=== PATIENT | male | born 1985 | race Caucasian/White ===

== ENCOUNTER 2017-01-25 22:02 | Emergency (ER) | payer SELFPAY ==
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
[2017-01-25 22:50] VITALS: BP 157/94
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
--- NOTE | 2017-01-26 10:59 | CR ---
EXAM DATE: 01/25/17 PATIENT'S AGE: 31 Patient: MAULIK BRANNON Facility: [place], [place] Site . Site : 1985 Study: XRay Shoulder Right [id number]/28/2017 10:47:59 PM Ordering Physician: Darnell Rios Final Report: CLINICAL INDICATION: Pain. Findings: There is a minimally displaced fracture at the junction of the middle and distal thirds of the clavicle. No other bone or joint abnormality is identified. The scapula and proximal humerus appear intact. Impression: Clavicular fracture. Dictated by Milad Quinn MD @ Jan 25 2017 11:11PM (Electronic Signature) Report Signed by Proxy. TASIA
== END 2017-01-25 23:14 | disposition left against medical advice (07) ==
LOC: MW.ED 22:02
DX: S42.032A Displaced fracture of lateral end of left clavicle, initial encounter for closed fracture (principal); V86.59XA Driver of other special all-terrain or other off-road motor vehicle injured in nontraffic accident, initial encounter
CPT/HCPCS: 71010; 72170; 73030; 99284; A4566; 99283

== ENCOUNTER 2017-01-26 20:16 | Emergency (ER) | payer SELFPAY ==
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
[2017-01-26 23:06] VITALS: BP 125/72
--- NOTE | 2017-01-27 13:52 | CR ---
EXAM DATE: 01/26/17 PATIENT'S AGE: 31 Patient: MAULIK BRANNON Facility: [place], [place] Site . Site : 1985 Study: XRay Shoulder [id number]/29/2017 9:32:54 PM Ordering Physician: Briana Braden Final Report: INDICATION: Trauma. TECHNIQUE: Two views of the right shoulder. COMPARISON: 01/25/2017. IMPRESSION: No glenohumeral joint subluxation or dislocation. Again seen is a mildly displaced fracture involving the mid to distal shaft of the right clavicle. AC joint is unremarkable. Dictated by Michele Baig MD @ 01/26/2017 9:58:46 PM Dictated by: Michele Baig MD @ 01/26/2017 21:58:53 (Electronic Signature) Report Signed by Proxy. MTDManuela
--- NOTE | 2017-01-27 13:53 | CR ---
EXAM DATE: 01/26/17 PATIENT'S AGE: 31 Patient: MAULIK BRANNON Facility: [place], [place] Site . Site : 1985 Study: XRay Shoulder clavicle [id number]/29/2017 9:33:32 PM Ordering Physician: Briana Braden Final Report: INDICATION: Trauma. TECHNIQUE: Two views of the right clavicle. COMPARISON: 01/25/2017. IMPRESSION: Again seen is a fracture through the mid to distal portion of the right clavicle , with mild inferior displacement. Dictated by Michele Baig MD @ 01/26/2017 9:57:14 PM Dictated by: Michele Baig MD @ 01/26/2017 21:57:24 (Electronic Signature) Report Signed by Proxy. [facility]ITAL[facility]uel[facility]
== END 2017-01-26 22:05 | disposition home or self-care (01) ==
LOC: MW.ED 20:16
DX: S42.021D Displaced fracture of shaft of right clavicle, subsequent encounter for fracture with routine healing (principal); F17.210 Nicotine dependence, cigarettes, uncomplicated; Z98.890 Other specified postprocedural states; V86.99XD Unspecified occupant of other special all-terrain or other off-road motor vehicle injured in nontraffic accident, subsequent encounter
CPT/HCPCS: 73000-26-RT; 73000-RT; 73030-26-RT; 73030-RT; 99283; 99284

== ENCOUNTER 2018-07-20 15:50 | Emergency (ER) | payer OTHER ==
--- NOTE | 2018-07-20 15:52 | EDM.PDOC ---
ED HPI GENERAL MEDICAL PROBLEM - General Stated Complaint: RIGHT HAND INJURY Time Seen by Provider: 07/20/18 15:51 Source of Information: Reports: Patient History Limitations: Reports: No Limitations - History of Present Illness INITIAL COMMENTS - FREE TEXT/NARRATIVE: HISTORY AND PHYSICAL: History of present illness: Patient is a 33-year-old male who presents to the ED today following an injury that happened at work about an hour before arrival to the ED. 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 He states he does not feel that one very deep but he has had some swelling since. He has full sensation and use of hand without difficulties. He is not up-to-date on his tdap vaccinations. He denies fever, chills, prior injury to this hand, are all other review of systems is reviewed and negative. He denies any health history. Review of systems: As per history of present illness and below otherwise all systems reviewed and negative. Past medical history: As per history of present illness and as reviewed below otherwise noncontributory. Surgical history: As per history of present illness and as reviewed below otherwise noncontributory. Social history: See social history for further information Family history: As per history of present illness and as reviewed below otherwise noncontributory. Physical exam: General: Patient is alert, oriented, and in no acute distress. He is sitting comfortably on exam table. HEENT: Atraumatic, normocephalic, negative for conjunctival pallor or scleral icterus, mucous membranes moist, TMs normal bilaterally, throat clear, neck supple, nontender, trachea midline. No drooling or trismus noted. No meningeal signs. No hot potato voice noted. Lungs: Clear to auscultation, breath sounds equal bilaterally, chest nontender. Heart: S1S2, regular rate and rhythm without overt murmur Abdomen: Soft, nondistended, nontender. Negative for masses or hepatosplenomegaly. Negative for costovertebral tenderness. Pelvis: Stable nontender. Genitourinary: Deferred. Rectal: Deferred. Skin: See EXTREMITY. Otherwise intact, warm, dry. No lesions or rashes noted. Extremities: There is a 1 cm abrasion on the dorsal right hand with some underlying edema. Cap refill less than 2 seconds. Radial pulse grossly intact bilaterally. Has full sensation and range of motion of all digits. Otherwise moves all extremties per self. No snuff box tenderness. Able to flex and extend the hand/fingers without compliant/weakness. Neurovascular unremarkable. Neuro: Awake, alert, oriented. Cranial nerves II through XII unremarkable. Cerebellum unremarkable. Motor and sensory unremarkable throughout. Exam nonfocal. Notes: Patient does have full use of hand without deficit. There is an area of abrasion with some underlying edema. Will get imaging of this hand. Patient is not up-to-date with his tdap vaccination but declines this vaccine today. Discussed the risk and benefits of why this vaccine is recommended but patient declines. Hand x-ray shows no acute fracture, dislocation or soft tissue swelling. We'll give him an Ned wrap for comfort. Encouraged him to follow-up with the orthopedic provider in the next 1-2 days. Supportive care measures were reviewed and discussed. Voices understanding and is agreeable to plan of care. Denies any further questions or concerns at this time. Diagnostics: Right hand x-ray Therapeutics: Patient declines Tdap Prescription: None Impression: Crush injury, right Plan: 1. Rest, ice, elevate the extremity as able. Please use the ned wrap for comfort. 2. Tylenol and/or ibuprofen as needed for pain management. 3. Please follow-up with the orthopedic provider and/or your primary care provider in the next 1-2 days. Return to the ED as needed and as discussed Definitive disposition and diagnosis as appropriate pending reevaluation and review of above. - Related Data Allergies Allergy/AdvReac Type Severity Reaction Status Date / Time No Known Allergies Allergy Verified 01/26/17 20:25 Home Meds: Home Meds . [No Known Home Meds] 01/25/17 [History] Past Medical History HEENT History: Reports: None Cardiovascular History: Reports: None Respiratory History: Reports: None Gastrointestinal History: Reports: None Genitourinary History: Reports: None Musculoskeletal History: Reports: Other (See Below) Other Musculoskeletal History: broken left collar bone Neurological History: Reports: None Psychiatric History: Reports: None Endocrine/Metabolic History: Reports: None Hematologic History: Reports: None Immunologic History: Reports: None Oncologic (Cancer) History: Reports: None Dermatologic History: Reports: None - Infectious Disease History Infectious Disease History: Reports: None - Past Surgical History HEENT Surgical History: Reports: Eye Surgery Social & Family History - Family History Family Medical History: Noncontributory - Caffeine Use Caffeine Use: Reports: Soda ED ROS GENERAL - Review of Systems Review Of Systems: ROS reveals no pertinent complaints other than HPI. ED EXAM, GENERAL - Physical Exam Exam: See Below Course - Vital Signs Last Recorded V/S: Last Vital Signs Temp 98.0 F 07/20/18 16:06 Pulse 74 07/20/18 16:06 Resp 20 07/20/18 16:06 BP 147/103 H 07/20/18 16:06 Pulse Ox 98 07/20/18 16:06 Departure - Departure Time of Disposition: 16:44 Disposition: Home, Self-Care 01 Clinical Impression: Crushing injury of right hand Qualifiers: Encounter type: initial encounter Qualified Code(s): S67.21XA - Crushing injury of right hand, initial encounter - Discharge Information Instructions: Crush Injury of the Hand, [id number] Referrals: PCP,None [Primary Care Provider] - Additional Instructions: The following information is given to patients seen in the emergency department who are being discharged to home. This information is to outline your options for follow-up care. We provide all patients seen in our emergency department with a follow-up referral. The need for follow-up, as well as the timing and circumstances, are variable depending upon the specifics of your emergency department visit. If you don't have a primary care physician on staff, we will provide you with a referral. We always advise you to contact your personal physician following an emergency department visit to inform them of the circumstance of the visit and for follow-up with them and/or the need for any referrals to a consulting specialist. The emergency department will also refer you to a specialist when appropriate. This referral assures that you have the opportunity for follow-up care with a specialist. All of these measure are taken in an effort to provide you with optimal care, which includes your follow-up. Under all circumstances we always encourage you to contact your private physician who remains a resource for coordinating your care. When calling for follow-up care, please make the office aware that this follow-up is from your recent emergency room visit. If for any reason you are refused follow-up, please contact the [facility] Emergency Department at and asked to speak to the emergency department charge nurse. [facility] [address] [place] [address] [address] [facility] Specialty Care - Orthopedic Clinic Professional Building [address], [address] [place] [address] 1. Rest, ice, elevate the extremity as able. Please use the ned wrap for comfort. 2. Tylenol and/or ibuprofen as needed for pain management. 3. Please follow-up with the orthopedic provider and/or your primary care provider in the next 1-2 days. Return to the ED as needed and as discussed
[2018-07-20 16:10] VITALS: BP 147/103
--- NOTE | 2018-07-20 16:38 | CR ---
EXAMINATION: Right hand HISTORY: Crush injury COMPARISON: None TECHNIQUE: 3 views FINDINGS/IMPRESSION: There is no acute osseous abnormality, dislocation, or fracture. No mineralization and joint spaces are preserved. No focal soft tissue swelling.
== END 2018-07-20 16:55 | disposition home or self-care (01) ==
LOC: MW.ED 15:50
DX: S67.21XA Crushing injury of right hand, initial encounter (principal); S60.511A Abrasion of right hand, initial encounter; W22.8XXA Striking against or struck by other objects, initial encounter; Y93.89 Activity, other specified; Y92.89 Other specified places as the place of occurrence of the external cause; Y99.0 Civilian activity done for income or pay
CPT/HCPCS: 73130-26-RT; 73130-RT; 99283

== ENCOUNTER 2019-12-30 00:48 | Emergency (ER) | payer SELFPAY ==
[2019-12-30] MEDS ORDERED: Sodium Chloride 0.9% 2.5 ML Syringe FLUSH PRN (00:57)
[2019-12-30] MEDS ORDERED: Sodium Chloride 0.9% 10 ML Syringe FLUSH PRN (00:57)
[2019-12-30] MEDS ORDERED: Sodium Chloride 0.9% 1,000 ML IV ONE (00:58)
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
[2019-12-30 01:23] LABS: BLOOD UREA NITROGEN,BUN 12 mg/dL (7.0-18.0); CARBON DIOXIDE,CO2 22.3 mmol/L (21.0-32.0); CHLORIDE,CL 102 mmol/L (98-107); GLUCOSE RANDOM 91 mg/dL (74-106); POTASSIUM,K 3.5 mmol/L (3.5-5.1); SODIUM,NA 138 mmol/L (136-148)
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
[2019-12-30 02:31] VITALS: BP 147/91; PULSE 91
== END 2019-12-30 02:25 ==
LOC: MW.ED 00:48
DX: S01.511A Laceration without foreign body of lip, initial encounter (principal); F10.129 Alcohol abuse with intoxication, unspecified; W22.8XXA Striking against or struck by other objects, initial encounter
CPT/HCPCS: 36415; 70450; 70486; 72125; 80048; 85025; 99284; J7030; 99283

== ENCOUNTER 2022-08-30 02:29 | Emergency (ER) | payer SELFPAY ==
[2022-08-30 02:48] VITALS: BP 127/79; PULSE 94
== END 2022-08-30 02:59 | disposition home or self-care (01) ==
LOC: MW.ED 02:29
DX: K92.2 Gastrointestinal hemorrhage, unspecified (principal)
CPT/HCPCS: 99284